=== PATIENT | male | born 1965 | race Caucasian/White ===

== ENCOUNTER → 2023-04-09 | Outpatient (CLI) | payer BC ==
[2023-04-09 11:14] LABS: Basophils # (A) 0.1 k/uL (0-0.2); Basophils % (A) 0 %; Eosinophils # (A) 0.1 k/uL (0-0.7); Eosinophils % (A) 1 %; HCT 49.1 % (39.0-53.0); HGB 16.6 gm/dL (13.0-17.5); Lymphocytes # (A) 1.4 k/uL (1.0-4.8); Lymphocytes % (A) 13 %; MCH 30.5 pg (25.0-35.0); MCHC 33.8 g/dL (31.0-37.0); MCV 90.2 fL (80.0-100.0); Mean Platelet Volume 6.6; Monocytes # (A) 0.6 k/uL (0-1.0); Monocytes % (A) 6 %; Neutrophils # (A) 8.4 k/uL (1.3-7.7); Neutrophils % (A) 79 %; Platelet Count 190 k/uL (150-450); RBC 5.45 m/uL (4.30-5.90); RDW 12.2 % (11.5-15.5); WBC 10.6 k/uL (3.8-10.6)
[2023-04-09 11:23] LABS: ALT 23 U/L (4-49); AST 23 U/L (17-59); African American GFR (CKD) >90 (>60 ml/min/1.73 sqM); Albumin 4.5 g/dL (3.5-5.0); Albumin/Globulin Ratio 1.9; Alkaline Phosphatase 65 U/L (38-126); Anion Gap 10 mmol/L; Blood Urea Nitrogen 21 mg/dL (9-20); Calcium 9.6 mg/dL (8.4-10.2); Carbon Dioxide 28 mmol/L (22-30); Chloride 98 mmol/L (98-107); Globulin 2.4 g/dL; Glucose 109 mg/dL (74-99); Non-African American GFR(CKD) 88 (>60 ml/min/1.73 sqM); Potassium 4.6 mmol/L (3.5-5.1); Sodium 136 mmol/L (137-145); Total Protein 6.9 g/dL (6.3-8.2)
--- NOTE | 2023-04-09 11:39 | CT ---
EXAMINATION TYPE: CT abdomen pelvis w con CT DLP: 1320 mGycm, Automated exposure control for dose reduction was used. DATE OF EXAM: 04/09/2023 11:12 AM COMPARISON: None. CLINICAL INDICATION:Male, 57 years old with history of R10.32 LLQ PAIN; LLQ pain x 2days h/o inguinal hernia sx TECHNIQUE: Axial CT of the abdomen and pelvis. Sagittal and coronal reformats were created on a [employer] workstation. Contrast used:100 mL of Isovue 300 with IV Contrast, (none if empty) Oral contrast used: with Oral Contrast (none if empty) FINDINGS: LOWER CHEST: Unremarkable ABDOMEN LIVER: Mild fatty infiltration, otherwise unremarkable. GALLBLADDER AND BILE DUCTS: Unremarkable. PANCREAS: Parenchyma appears unremarkable. Minimally prominent appearance of the main pancreatic duct . SPLEEN: Unremarkable. ADRENAL GLANDS: Unremarkable. KIDNEYS AND URETERS: Kidneys enhance symmetrically. A 1.5 cm cyst in the upper pole left kidney. No e vidence of hydronephrosis or renal calculus. The ureters are unremarkable. PELVIS BLADDER: Bladder is mildly distended. Lobular indentation along its base by the enlarged prostate. REPRODUCTIVE: Prostate is enlarged and somewhat lobular, 5.2 cm in greatest transverse dimension. A f ew focal parenchymal calcifications. ABDOMEN & PELVIS STOMACH AND BOWEL: Contrast traverses the stomach and small bowel loops without evidence of obstructi on. Appendix is not readily identified. There is stool and contrast seen throughout the colon. Multip le colonic diverticula are seen, mostly in the descending and sigmoid portions. Significant wall thic kening with an apple core type appearance in the proximal sigmoid, best seen axial series 3 image 53. There are multiple diverticula in the region. Farther distally, there is relatively diffuse colonic wall thickening which appears to extend through the rectum. PERITONEUM/RETROPERITONEUM: No evidence of pneumoperitoneum or free fluid. VASCULATURE: No evidence of aortic aneurysm. MUSCULOSKELETAL: No acute osseous abnormalities. Mild disc degeneration changes are present throughou t the thoracolumbar spine. LYMPH NODES: No gross evidence for lymphadenopathy. SOFT TISSUE/ABDOMINAL WALL: Unremarkable IMPRESSION: 1. Multiple colonic diverticula are present. 2. Significant wall thickening with an apple core type appearance in the proximal sigmoid, could be due to diverticulitis or colitis, however neoplasm remains to be excluded. Close follow-up advised. 3. Farther distally, relatively diffuse colonic wall thickening may suggest nonspecific colitis. 4. Prostatomegaly. Clinical and PSA correlation recommended.
== END | disposition home or self-care (01) ==
LOC: RADCTMAIN 09:09
PROVIDERS: ATTEND Family Medicine
DX: N40.0 Benign prostatic hyperplasia without lower urinary tract symptoms (principal); K57.30 Diverticulosis of large intestine without perforation or abscess without bleeding; K63.89 Other specified diseases of intestine; R10.32 Left lower quadrant pain
CPT/HCPCS: 80053; 85025; 74177; 36415; Q9967